=== PATIENT | male | born 1950 | race African-American/Black ===

== ENCOUNTER 2019-05-29 20:56 | Emergency (ER) | payer MEDICARE, MEDICAID ==
[~2019-05-29] VITALS: Ht 172.7 cm; Wt 73.0 kg
[~2019-05-29 20:56] MED LIST: ATOR40TA70 PO; GLIP10TA10 PO; LISI40TA4 PO; METF-415 *; METO-539 PO
[2019-05-29] MEDS ORDERED: TETANUS, DIPHTHERIA, PERTUSSIS VAC/PF 0.5ML (>7YR OLD) IM ONE (22:30)
[2019-05-29] MEDS ORDERED: BACITRACIN ZINC OINT UDPKT TOP ONE (23:30)
[2019-05-29] MEDS ORDERED: LIDOCAINE 1%/EPI 1:100,000 10 ML VIAL IJ ONE (23:30)
[2019-05-30] MEDS ORDERED: BACITRACIN 15GM TUBE TOP SCH (00:30)
[2019-05-30] MEDS ORDERED: LIDOCAINE HCL/EPINEPHRINE 1%-EPI 1:100,000 20 ML VIAL INFIL NR (00:30)
[2019-05-30 01:38] VITALS: BP 145/70
== END 2019-05-30 01:56 | disposition home or self-care (01) ==
LOC: ER 20:56
DX: S02.40FA Zygomatic fracture, left side, initial encounter for closed fracture (principal); S02.40EA Zygomatic fracture, right side, initial encounter for closed fracture; S01.412A Laceration without foreign body of left cheek and temporomandibular area, initial encounter; S01.411A Laceration without foreign body of right cheek and temporomandibular area, initial encounter; E11.9 Type 2 diabetes mellitus without complications; I10 Essential (primary) hypertension; Z88.0 Allergy status to penicillin; Y08.89XA Assault by other specified means, initial encounter; Y93.89 Activity, other specified; Y92.89 Other specified places as the place of occurrence of the external cause; Y99.8 Other external cause status
CPT/HCPCS: 12013; 70450; 70480; 90471; 90715; 99284; J3490

== ENCOUNTER 2019-05-31 19:42 | Emergency (ER) | payer MEDICARE, MEDICAID ==
[~2019-05-31] VITALS: Ht 177.8 cm; Wt 82.0 kg
[2019-05-31 19:50] VITALS: BP 140/69
== END 2019-05-31 22:25 | disposition left against medical advice (07) ==
LOC: ER 19:42
DX: Z53.21 Procedure and treatment not carried out due to patient leaving prior to being seen by health care provider (principal)